=== PATIENT | male | born 1980 | race Caucasian/White ===

== ENCOUNTER 2021-07-17 12:46 | Emergency (ER) | payer OTHER, SELFPAY ==
--- NOTE | ~2021-07-17 | MR_ITS ---
EXAMINATION: MR BRAIN WITHOUT CONTRAST CLINICAL INFORMATION: Balance issues. Rule out posterior stroke. COMPARISON: None. TECHNIQUE: Multiplanar, multisequence imaging of the brain was performed without contrast. Slightly limited study with motion artifacts. FINDINGS: No diffusion abnormalities are identified to suggest an acute or subacute infarct. The ventricles are normal in size. No mass effect or midline shift is seen. No brain parenchymal signal abnormality is noted. No extra-axial fluid collections are seen. The brainstem and cerebellum are normal. The gradient refocused acquisition is normal. The craniovertebral junction, marrow signal, and midline structures are normal. The major intracranial flow voids at the level of the [place] are preserved. The dural venous sinus flow voids are maintained. Trace fluid in the dependent right mastoid air cells. Mild ethmoid sinus mucosal thickening noted. MR/MR head/brain wo con IMPRESSION: Normal limited MRI of the brain. No acute process.
[2021-07-17 13:57] VITALS: BP 140/75; PULSE 91; RESP 16; TEMP 36.5; O2SAT 98; BMI 29.8
--- NOTE | 2021-07-17 15:39 | ECG_ITS ---
Test Reason : DIZZINESS Blood Pressure : / mmHG Vent. Rate : 093 BPM Atrial Rate : 093 BPM P-R Int : 142 ms QRS Dur : 082 ms QT Int : 332 ms P-R-T Axes : 020 040 085 degrees QTc Int : 412 ms Normal sinus rhythm with sinus arrhythmia Nonspecific T wave abnormality Lateral leads Intra-ventricular conduction delay Abnormal ECG no Referred By: Shyam Bourne Electronically Signed By:NIK BETANCUR MD
--- NOTE | 2021-07-17 15:43 | ED.DIZZY ---
HPI - Dizziness General Chief Complaint: Dizziness Stated Complaint: Dizziness Time Seen by Provider: 07/17/21 14:56 Source: patient Mode of arrival: ambulatory Limitations: no limitations History of Present Illness HPI Narrative: 41-year-old male who presents emergency department for evaluation of dizziness. The patient states that approximately 1 week prior he had severe exhaustion for 2 days. He also had a fever as high as 101.3? F. he states that that time is also having abdominal pain, he points to his left lower quadrant when asked to localize the pain. He states the pain was a sharp pain which was 7/10 at its worst, the pain was worse with movement. He had no change in his bowel movements at that time. He states that the abdominal pain has completely resolved. States this morning when he got up he felt off balance. He states that when he walks he feels like he is tipping over. He headache, vertigo/room spinning, nausea, vomiting, numbness or weakness of his extremities. The patient states that is in [place] approximately 10 days ago knee [place] but he does not recall any tick bites. He has not noticed any rash on his body. He denied myalgias or arthralgias. Patient states that he had a negative COVID-19 test 2 days prior. Related Data Allergies Allergy/AdvReac Type Severity Reaction Status Date / Time No Known Allergies Allergy Verified 07/17/21 15:39 Review of Systems Review of Systems: Yes all other systems are reviewed and are negative PMFSH Past Medical History [facility] Narrative: Social history: The patient denies tobacco use. He states that he was drinking 2 beers per day but stopped drinking 2 weeks prior. He denies any drug use. Medical History Deviated septum Hypercholesteremia Hypertension Panic attack Panic disorder Surgical History History of tonsillectomy Social History Social History Advance Directives: No Advance Directives Information Provided: Yes Physical Exam Vital Signs: Vital Signs: Last Vital Signs Temp 97.7 F 07/17/21 13:57 Pulse 91 07/17/21 13:57 Resp 16 07/17/21 13:57 BP 140/75 H 07/17/21 13:57 Pulse Ox 98 07/17/21 13:57 Body Mass Index 29.8 Const: General: cooperative and no acute distress Orientation/consciousness: oriented to person and oriented to place Limitations: no limitations HENMT: Head: Yes normal to inspection, Yes normocephalic and Yes atraumatic Ears: external ears normal General nose exam: Normal external nose present Face and sinus: Yes normal facial exam Mouth: Normal oral and palatal mucosa present Throat: Yes posterior oropharynx normal Eyes: General: appearance normal, both eyes and all related structures Pupils: Equal, round and reactive pupils present EOM: EOMs intact bilaterally and Nystagmus present (With rightward gaze only) Neck: Neck: Yes normal visual inspection, Yes no lymphadenopathy, Yes trachea midline and Yes supple Chest: Chest palpation & inspection: normal inspection of the chest and normal palpation of entire chest wall Resp: Effort & Inspection: normal respiratory effort and able to speak in complete sentences Auscultation: clear to auscultation bilaterally Cardio: Rate: regular rate Rhythm: regular rhythm Heart sounds: S1 normal heart sound present, S2 normal heart sound present and Murmur heart sound present systolic II/ and at the right sternal border GI: Inspection: Yes normal to inspection Palpation (GI): Soft to palpation, nontender and no guarding Auscultation: normal bowel sounds : General: Yes no CVA tenderness Back/Spine/Pelvis: Back: no CVA tenderness Skin: General skin exam: no rashes or lesions noted Neuro: General: oriented to person and oriented to place Cranial nerves: Yes CN's II-XII intact bilaterally, Yes Equal, round and reactive pupils present and Yes Nystagmus present (With rightward gaze only) Cognition (Neuro): normal cognition Motor exam (neuro): 5/5 motor strength present throughout Coordination: [id number] test normal, pokf-dr-[id number] test normal, sways with eyes open, Romberg test positive, Normal rapid alternating movements of the distal upper extremity present (Neuro) and other (Poor tandem gait , falls to the right) Romberg Test: Positive Extrem: General: Yes normal to inspection Psych: Appearance: grossly normal Speech and movement: Normal speech and movement present Affect: normal affect Attitude: cooperative Thought process: Normal thought process present Thought content: Normal thought content present Course Course Course Narrative: 41-year-old male who presents emergency department for evaluation severe exhaustion/fatigue 1 week prior that lasted 2 days, fatigue was associated with fever with a temperature as high as 101.3? and abdominal pain x2 days which have resolved. The patient was hiking in [place] 10 days prior. The patient woke up today with dizziness which he describes as being off balance, he did not experience vertigo. Vital signs revealed a blood pressure 140/75. The patient did have lateral nystagmus when looking to the right. Heart exam is concerning for possible 2/6 systolic murmur best heard at the right upper sternal border. His cerebellar exam revealed good finger nose to finger could rapid upper extremity movement and good heel to [place]. The patient however was unable to stand with his feet together with his eyes open without tipping over. He was unable to stand with his eyes closed. The patient had very poor tandem gait and appeared to fall to the right. The differential includes infectious etiology, tick-borne illness, COVID-19 infection, posterior/cerebellar stroke, labyrinthitis, vertigo, metabolic abnormality. I did order a CBC, CMP, lactate, blood cultures x2, tick-borne illness panel. I will obtain an MRI of the brain in order to further evaluate his off balance sensation and has abnormal neurologic findings. 1724: Patient's WBC elevated 12,800. Platelet count was low 147,000. Coags were normal. BUN was elevated the knee, AST, ALT and alk-phos were all elevated at 56, 120 and 155. COVID-19 test was negative. The patient is currently a MRI. The patient's care was turned over to my colleague, Dr. Clara Huizar. [facility] - Dizziness Lab Data Result diagrams: 07/17/21 16:21 07/17/21 16:21 Labs: Lab Results 07/17/21 07/17/21 07/17/21 Range/Units 16:21 16:21 16:21 WBC 12.8 H (4.8-10.8) X10*3/uL RBC 4.57 L (4.60-5.80) X10*6/uL Hgb 13.9 L (14.0-18.0) g/dl Hct 41.1 L (42.0-52.0) % MCV 89.9 (80.0-98.0) fL MCH 30.4 (27.0-33.0) pg MCHC 33.8 (31.0-36.0) g/dl RDW 12.7 (11.0-16.0) % Plt Count 147 L (160-400) X10*3/uL MPV 12.6 H (9.4-12.4) fL Immature Gran % (Auto) 0.7 H (0.0-0.4) % Neut % (Auto) 34.5 L (45-73) % Lymph % (Auto) 60.2 H (20-40) % [place] % (Auto) 3.5 (2-11) % Eos % (Auto) 0.2 (0-4) % Baso % (Auto) 0.9 (0-2) % Lymph # (Auto) 7.7 H (1.2-4.9) X10*3/uL [place] # (Auto) 0.4 (0.1-1.2) X10*3/uL Eos # (Auto) 0.0 (0.0-0.4) X10*3/uL Baso # (Auto) 0.1 (0.0-0.2) X10*3/uL Abs Immat Gran (auto) 0.09 H (0.00-0.03) X10*3/uL Absolute Neuts (auto) 4.41 (2.0-8.3) x10*3/uL Absolute Nucleated RBC 0.000 (0.0-0.012) X10*3/uL Nucleated RBC % (auto) 0.0 (0.0-0.2) /100WBC Smear Tech's Comments VERIFIED PT 11.6 (9.9-13.0) SEC INR 1.0 (0.9-1.1) APTT 37.5 (24.1-38.0) SEC Sodium 141 (135-145) mmol/L Potassium 4.5 (3.3-5.1) mmol/L Chloride 107 (96-108) mmol/L Carbon Dioxide 26 (22-29) mmol/L Anion Gap 13 (12-20) BUN 18 H (9-16) mg/dL Creatinine 0.97 (0.5-1.4) mg/dL Estim Creat Clear Calc 125.0 Estimated GFR > 60 Random Glucose 111 (60-115) mg/dL Lactic Acid (0.5-2.0) mmol/L Calcium 8.8 (8.4-10.2) mg/dL Total Bilirubin 0.4 (0.0-1.0) mg/dL AST 56 H (5-37) U/L ALT 120 H (0-40) U/L Alkaline Phosphatase 155 H (39-117) U/L Total Protein 7.8 (6.5-8.0) g/dL Albumin 4.3 (3.5-5.0) g/dL Lipase 16 (8-78) U/L COVID-19 ([facility]) (Negative) COVID-19 Clin Com 07/17/21 07/17/21 Range/Units 16:21 16:22 WBC (4.8-10.8) X10*3/uL RBC (4.60-5.80) X10*6/uL Hgb (14.0-18.0) g/dl Hct (42.0-52.0) % MCV (80.0-98.0) fL MCH (27.0-33.0) pg MCHC (31.0-36.0) g/dl RDW (11.0-16.0) % Plt Count (160-400) X10*3/uL MPV (9.4-12.4) fL Immature Gran % (Auto) (0.0-0.4) % Neut % (Auto) (45-73) % Lymph % (Auto) (20-40) % [place] % (Auto) (2-11) % Eos % (Auto) (0-4) % Baso % (Auto) (0-2) % Lymph # (Auto) (1.2-4.9) X10*3/uL [place] # (Auto) (0.1-1.2) X10*3/uL Eos # (Auto) (0.0-0.4) X10*3/uL Baso # (Auto) (0.0-0.2) X10*3/uL Abs Immat Gran (auto) (0.00-0.03) X10*3/uL Absolute Neuts (auto) (2.0-8.3) x10*3/uL Absolute Nucleated RBC (0.0-0.012) X10*3/uL Nucleated RBC % (auto) (0.0-0.2) /100WBC Smear Tech's Comments PT (9.9-13.0) SEC INR (0.9-1.1) APTT (24.1-38.0) SEC Sodium (135-145) mmol/L Potassium (3.3-5.1) mmol/L Chloride (96-108) mmol/L Carbon Dioxide (22-29) mmol/L Anion Gap (12-20) BUN (9-16) mg/dL Creatinine (0.5-1.4) mg/dL Estim Creat Clear Calc Estimated GFR Random Glucose (60-115) mg/dL Lactic Acid 1.1 (0.5-2.0) mmol/L Calcium (8.4-10.2) mg/dL Total Bilirubin (0.0-1.0) mg/dL AST (5-37) U/L ALT (0-40) U/L Alkaline Phosphatase (39-117) U/L Total Protein (6.5-8.0) g/dL Albumin (3.5-5.0) g/dL Lipase (8-78) U/L COVID-19 ([facility]) Negative (Negative) COVID-19 Clin Com See Note ECG Data Attestation: I personally reviewed and interpreted this ECG as follows: Interpretation: 1634: Normal sinus rhythm with a rate of 93, normal MD interval, QRS duration 2 times interval, , no ST segment elevation, no ST segment depression, no PACs, no PVCs. Nonspecific T-wave abnormalities with inverted T-waves in lead 1, aVL, V4 V5 and V6 Discharge Plan Discharge Clinical Impression: Ataxia
[2021-07-17 16:35] LABS: Basophils Absolute Auto 0.1 X10*3/uL (0.0-0.2); Basophils Percent Auto 0.9 % (0-2); Eosinophils Percent Auto 0.2 % (0-4); Hematocrit 41.1 % (42.0-52.0); Hemoglobin 13.9 g/dl (14.0-18.0); Imm Gran Abs Auto 0.09 X10*3/uL (0.00-0.03); Imm Gran Pct Auto 0.7 % (0.0-0.4); Lymphocytes Percent Auto 60.2 % (20-40); MANUAL DIFF FLAG SCAN; Mean Corpuscular HGB Conc 33.8 g/dl (31.0-36.0); Mean Corpuscular Hemoglobin 30.4 pg (27.0-33.0); Mean Corpuscular Volume 89.9 fL (80.0-98.0); Mean Platelet Volume 12.6 fL (9.4-12.4); Monocytes Absolute Auto 0.4 X10*3/uL (0.1-1.2); Monocytes Percent Auto 3.5 % (2-11); Neutrophils Absolute Auto 4.41 x10*3/uL (2.0-8.3); Neutrophils Percent Auto 34.5 % (45-73); Platelet Count 147 X10*3/uL (160-400); Red Blood Count 4.57 X10*6/uL (4.60-5.80); Red Cell Distribution Width 12.7 % (11.0-16.0); SCAN SMEAR FLAG 1; White Blood Count 12.8 X10*3/uL (4.8-10.8)
[2021-07-17 16:36] LABS: Lymphocytes Absolute Auto 7.7 X10*3/uL (1.2-4.9)
[2021-07-17 16:40] LABS: Prothrombin Time 11.6 SEC (9.9-13.0)
[2021-07-17 16:43] LABS: Partial Thromboplastin Time 37.5 SEC (24.1-38.0)
[2021-07-17 16:44] LABS: Lactic Acid 1.1 mmol/L (0.5-2.0)
[2021-07-17 16:53] LABS: Alanine Aminotransferase 120 U/L (0-40); Albumin Level 4.3 g/dL (3.5-5.0); Alkaline Phosphatase 155 U/L (39-117); Anion Gap 13 (12-20); Aspartate Amino Transferase 56 U/L (5-37); Bilirubin Total 0.4 mg/dL (0.0-1.0); Blood Urea Nitrogen 18 mg/dL (9-16); Calcium 8.8 mg/dL (8.4-10.2); Carbon Dioxide 26 mmol/L (22-29); Chloride 107 mmol/L (96-108); Estimated Glomerular Filt Rate > 60; Glucose Random 111 mg/dL (60-115); Lipase 16 U/L (8-78); Potassium 4.5 mmol/L (3.3-5.1); Sodium 141 mmol/L (135-145); Total Protein 7.8 g/dL (6.5-8.0)
[2021-07-17 16:57] LABS: SLIDE REVIEW VERIFIED
[2021-07-17 16:59] LABS: COVID-19 Test Negative (Negative)
[2021-07-17] MEDS: Meclizine HCl 25 MG TABLET PO (17:46)
[2021-07-17 17:52] VITALS: BP 138/73; PULSE 89; RESP 15; O2SAT 97
[2021-07-17 18:00] VITALS: BP 149/75; PULSE 82; O2SAT 100
[2021-07-17 18:11] VITALS: BP 155/88; PULSE 81; O2SAT 97
[2021-07-17 18:18] VITALS: BP 144/90; PULSE 98; O2SAT 96
[2021-07-17] MEDS: diazePAM 5 MG TABLET PO (18:29)
[2021-07-17 18:43] LABS: Troponin-I High Sensitivity < 3.5 ng/L (<3.5-35.0)
--- NOTE | 2021-07-17 19:36 | PC.NURSE ---
this nurse ambulated patient. pt denies dizziness or lightheadedness when standing up and when ambulating. gait steady. pt denies any SOB or chest pain when ambulating. pt back in bed at this time. call elliott in reach. notified.
[2021-07-20 19:22] LABS: A. Phagocytphilium DNA,RT-PCR NOT DETECTED (NOT DETECTED); Babesia Microti DNA, RT-PCR NOT DETECTED (NOT DETECTED); Borrelia Miyamotoi,DNA RT-PCR NOT DETECTED (NOT DETECTED); E.Chaffeensis DNA RT-PCR NOT DETECTED (NOT DETECTED); Lyme(Borrelia ssp)DNA RT-PCR NOT DETECTED (NOT DETECTED); Source-Tick borne disease BLOOD
== END 2021-07-17 20:14 | disposition home or self-care (01) ==
PROVIDERS: Emergency Medicine Emergency Medical Services; Emergency Provider Emergency Medicine
DX: R27.0 Ataxia, unspecified (principal); I10 Essential (primary) hypertension; Z20.822 Contact with and (suspected) exposure to COVID-19
CPT/HCPCS: 36415; 70551; 80053; 83605; 83690; 84484; 85025; 85610; 85730; 87040; 87635; 87798; 87801; 93005; 99284; 99285

== ENCOUNTER 2021-07-20 13:47 | Emergency (ER) | payer OTHER, SELFPAY ==
[2021-07-20 13:57] VITALS: BP 163/87; PULSE 93; RESP 20; TEMP 36.6; O2SAT 99; BMI 29.8
--- NOTE | 2021-07-20 17:45 | ED.DIZZY ---
HPI - Dizziness General Chief Complaint: Dizziness Stated Complaint: LIGHTHEADNESS MEDICATION REFILL Time Seen by Provider: 07/20/21 17:44 Source: patient Mode of arrival: ambulatory Limitations: no limitations History of Present Illness HPI Narrative: Patient with sudden onset of dizziness started on 07/17 seen here in the ER had a full workup including MRI negative discharge on diazepam and meclizine patient is still feeling dizzy no nausea or vomiting no focal weakness no tremors no headache Related Data Previous Rx's Medication Instructions Recorded diazepam 2 mg tablet (Valium) 2 mg PO TID PRN #3 tab 07/17/21 meclizine 25 mg tablet 25 mg PO TID PRN #10 tab 07/17/21 diazepam 2 mg tablet (Valium) 2 mg PO TID PRN #14 tab 07/20/21 meclizine 25 mg tablet 25 mg PO TID PRN #30 tab 07/20/21 Allergies Allergy/AdvReac Type Severity Reaction Status Date / Time No Known Allergies Allergy Verified 07/17/21 15:39 Review of Systems Review of Systems: Yes all other systems are reviewed and are negative [facility] Past Medical History Medical History Deviated septum Hypercholesteremia Hypertension Panic attack Panic disorder Surgical History History of tonsillectomy Social History Social History Patient Tobacco Use Status: Never used Tobacco Advance Directives: No Advance Directives Information Provided: Yes Physical Exam Vital Signs: Vital Signs: Last Vital Signs Temp 97.9 F 07/20/21 13:57 Pulse 93 07/20/21 13:57 Resp 20 07/20/21 13:57 BP 163/87 H 07/20/21 13:57 Pulse Ox 99 07/20/21 13:57 Body Mass Index 29.8 Appearance: Alert. Oriented X3. No acute distress. Eyes: PERRLA, nystagmus with rapid movement to the left on turning head to the right side ENT: Pharynx normal. Oral Mucosa moist Neck: Normal inspection. Neck supple. CVS: Normal heart rate and rhythm. Pulses normal. Respiratory: No respiratory distress. Equal air entry bilateral, Abdomen: Soft and nontender. Bowel sounds are present, Skin: Skin warm and dry. Normal skin color. Normal skin turgor. Extremities: No lower extremity edema. No calf tenderness Neuro: Oriented X 3. No motor deficit. No sensory deficit.No cerebellar signs , cranial nerves II-XII intact MDM - Dizziness MDM Narrative Medical decision making narrative: [place] Hallpike maneuver was done positive for posterior semicircular canal as a cause for vertigo, Modified Lonnie maneuver was done patient felt slightly better will discharge patient home advised to follow-up with ENT prescription for Valium and meclizine was given Discharge Plan Discharge Clinical Impression: Benign paroxysmal positional vertigo Qualifiers: Laterality: right Qualified Code(s): H81.11 - Benign paroxysmal vertigo, right ear Patient Disposition: Home, Self-Care Instructions: Benign Paroxysmal Positional Vertigo (ED) Additional Instructions: Exercises for vertigo as advised Take medication for the symptoms Follow-up with PCP/ENT Care and cautions as advised Prescriptions: New meclizine 25 mg tablet 25 mg PO TID PRN (Reason: dizziness) Qty: 30 RF: 0 diazepam [Valium] 2 mg tablet 2 mg PO TID PRN (Reason: dizziness or vertigo) Qty: 14 RF: 0 No Action meclizine 25 mg tablet 25 mg PO TID PRN (Reason: dizziness) Qty: 10 RF: 0 diazepam [Valium] 2 mg tablet 2 mg PO TID PRN (Reason: dizziness or vertigo) Qty: 3 RF: 0 Referrals: Boris Singleton [Physician] - 1 week
[2021-07-20] MEDS: Meclizine HCl 25 MG TABLET PO (18:29)
[2021-07-20] MEDS: LORazepam 1 MG TABLET PO (18:29)
== END 2021-07-20 18:45 | disposition home or self-care (01) ==
PROVIDERS: Emergency Provider Internal Medicine
DX: H81.11 Benign paroxysmal vertigo, right ear (principal); I10 Essential (primary) hypertension
CPT/HCPCS: 99283